=== PATIENT | male | born 1950 | race Caucasian/White ===

== ENCOUNTER 2022-12-24 11:39 | Emergency (ER) | payer MEDICARE, OTHER ==
[2022-12-24 12:40] VITALS: RESP 20
[2022-12-24] MEDS ORDERED: FLUCONAZOLE 100 MG TAB PO ONE (13:27)
--- NOTE | 2022-12-24 13:32 | ED ---
General Adult HPI - General Chief complaint: Recheck/Abnormal Lab/Rx Stated complaint: vomiting,sob Time Seen by Provider: 12/24/22 12:55 Source: patient, RN notes reviewed, old records reviewed Mode of arrival: ambulatory Limitations: no limitations - History of Present Illness Initial comments: 72-year-old male presenting for evaluation of painful and difficulty swallowing. This been ongoing for many months. He states he was diagnosed with oral thrush and was prescribed nystatin swish and swallow. He states this did not significantly improve his symptoms. He states that he has lost weight secondary to painful swallowing. He is able to drink liquids but is having a hard time drinking any solids due to pain. He has not had endoscopy - Related Data Previous Rx's Medication Instructions Recorded Fluconazole [Diflucan] 200 mg PO DAILY 14 Days #14 tablet 12/24/22 Omeprazole 20 mg PO DAILY 30 Days #30 tab 12/24/22 Allergies Allergy/AdvReac Type Severity Reaction Status Date / Time No Known Allergies Allergy Verified 12/24/22 12:39 Review of Systems ROS Statement: Those systems with pertinent positive or pertinent negative responses have been documented in the HPI. ROS Other: All systems not noted in ROS Statement are negative. 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 Absent: tenderness, meningismus, lymphadenopathy, thyromegaly Respiratory exam: Present: normal lung sounds bilaterally. Absent: respiratory distress, wheezes Cardiovascular Exam: Present: regular rate, normal rhythm GI/Abdominal exam: Present: soft. Absent: distended, tenderness Extremities exam: Present: normal inspection, normal capillary refill Neurological exam: Present: alert, oriented X3, CN II-XII intact. Absent: motor sensory deficit Psychiatric exam: Present: normal affect, normal mood Skin exam: Present: warm, dry, intact. Absent: cyanosis, diaphoretic Course Vital Signs 12/24/22 12/24/22 12:34 13:39 Temperature 98.6 F 98.8 F Pulse Rate 74 100 Respiratory 20 20 Rate Blood Pressure 114/78 124/86 O2 Sat by Pulse 98 96 Oximetry Medical Decision Making - Medical Decision Making Was pt. sent in by a medical professional or institution ([facility], [facility], urgent care, hospital, or residential...) When possible be specific @ -No Did you speak to anyone other than the patient for history (EMS, parent, family, police, friend...)? What history was obtained from this source @ -No Did you review nursing and triage notes (agree or disagree)? Why? @ -I reviewed and agree with nursing and triage notes Were old charts reviewed (outside hosp., previous admission, EMS record, old EKG, old radiological studies, urgent care reports/EKG's, residential records)? Report findings @ -No old charts were reviewed Differential Diagnosis (chest pain, altered mental status, abdominal pain women, abdominal pain men, vaginal bleeding, weakness, fever, dyspnea, syncope, headache, dizziness, GI bleed, back pain, seizure, CVA, palpatations, mental health, musculoskeletal)? @ -[Esophageal mass, esophageal candidiasis, esophageal stricture EKG interpreted by me (3pts min.). @ -As above X-rays interpreted by me (1pt min.). @ -None done CT interpreted by me (1pt min.). @ -None done U/S interpreted by me (1pt. min.). @ -None done What testing was considered but not performed or refused? (CT, X-rays, U/S, labs)? Why? @ -None What meds were considered but not given or refused? Why? @ -None Did you discuss the management of the patient with other professionals (professionals i.e. [facility], [facility], lab, RT, psych nurse, social organization professor, telegraph plant maintainer, teacher, president and chief operating officer, major case detective)? Give summary @ -No Was smoking cessation discussed for >3mins.? @ -No Was critical care preformed (if so, how long)? @ -No Were there social determinants of health that impacted care today? How? (Homelessness, low income, unemployed, alcoholism, drug addiction, transportation, low edu. Level, literacy, decrease access to med. care, snf, rehab)? @ -No Was there de-escalation of care discussed even if they declined (Discuss DNR or withdrawal of care, Hospice)? DNR status @ -No What co-morbidities impacted this encounter? (DM, HTN, Smoking, COPD, CAD, Ca ncer, CVA, ARF, Chemo, Hep., AIDS, mental health diagnosis, sleep apnea, morbid obesity)? @ -[COPD Was patient admitted / discharged? Hospital course, mention meds given and route, prescriptions, significant lab abnormalities, going to OR and other pertinent info. @ -72-year-old male with at least 6 months of difficulty swallowing. I do feel patient will benefit from endoscopy. He appears well-hydrated with stable vitals. Given the chronic nature of this symptom and previous history of oral candidiasis I will treat esophageal candidiasis with fluconazole. He is given strict return parameters and will follow closely with gastroenterology Undiagnosed new problem with uncertain prognosis? @ -No Drug Therapy requiring intensive monitoring for toxicity (Heparin, Nitro, Insulin, Cardizem)? @ -No Were any procedures done? @ -No Diagnosis/symptom? @ -[Odontophagia dysphagia Acute, or Chronic, or Acute on Chronic? @ Chronic Uncomplicated (without systemic symptoms) or Complicated (systemic symptoms)? @ -default Side effects of treatment? @ -No Exacerbation, Progression, or Severe Exacerbation? @ -No Poses a threat to life or bodily function? How? (Chest pain, [place], [place], pneumonia, PE, COPD, DKA, ARF, appy, cholecystitis, CVA, Diverticulitis, Homicidal, Suicidal, threat to staff... and all critical care pts) @ -[Low risk at this time Disposition Clinical Impression: Difficulty swallowing Disposition: HOME SELF-CARE Condition: Good Instructions (If sedation given, give patient instructions): Esophagitis (ED) Prescriptions: Fluconazole [Diflucan] 200 mg PO DAILY 14 Days #14 tablet Omeprazole 20 mg PO DAILY 30 Days #30 tab Is patient prescribed a controlled substance at d/c from ED?: No Referrals: None,Stated [Primary Care Provider] - 1-2 days Karen Hyde MD [STAFF PHYSICIAN] - 1-2 days Time of Disposition: 13:31
[2022-12-24 13:50] VITALS: BP 124/86; PULSE 100; TEMP 98.8
== END 2022-12-24 14:08 | disposition home or self-care (01) ==
LOC: EC 11:39
DX: R13.10 Dysphagia, unspecified (principal); F17.200 Nicotine dependence, unspecified, uncomplicated
CPT/HCPCS: 99284

== ENCOUNTER 2023-01-03 12:03 | Inpatient (IN) | payer MEDICARE, OTHER ==
[2023-01-03 13:29] LABS: Anisocytosis Slight; Basophils % (A) 0 %; Eosinophils % (A) 0 %; HCT 40.1 % (39.0-53.0); HGB 13.3 gm/dL (13.0-17.5); Lymphocytes # (A) 0.3 k/uL (1.0-4.8); Lymphocytes % (A) 5 %; MCH 27.6 pg (25.0-35.0); MCHC 33.1 g/dL (31.0-37.0); MCV 83.4 fL (80.0-100.0); Mean Platelet Volume 10.1; Monocytes # (A) 0.2 k/uL (0-1.0); Monocytes % (A) 3 %; Neutrophils # (A) 4.9 k/uL (1.3-7.7); Neutrophils % (A) 90 %; Platelet Count 129 k/uL (150-450); RBC 4.81 m/uL (4.30-5.90); RDW 16.4 % (11.5-15.5); WBC 5.5 k/uL (3.8-10.6)
[2023-01-03 13:41] LABS: ALT 78 U/L (4-49); AST 162 U/L (17-59); African American GFR (CKD) >90 (>60 ml/min/1.73 sqM); Albumin 3.1 g/dL (3.5-5.0); Alkaline Phosphatase 150 U/L (38-126); Anion Gap 4 mmol/L; Blood Urea Nitrogen 27 mg/dL (9-20); Calcium 8.5 mg/dL (8.4-10.2); Carbon Dioxide 31 mmol/L (22-30); Chloride 92 mmol/L (98-107); Glucose 116 mg/dL (74-99); Magnesium 2.4 mg/dL (1.6-2.3); Non-African American GFR(CKD) 85 (>60 ml/min/1.73 sqM); Potassium 4.9 mmol/L (3.5-5.1); Sodium 127 mmol/L (137-145); Total Bilirubin 1.3 mg/dL (0.2-1.3); Total Protein 6.2 g/dL (6.3-8.2)
--- NOTE | 2023-01-03 13:42 | XR ---
EXAMINATION TYPE: XR chest 2V DATE OF EXAM: 01/03/2023 COMPARISON: NONE HISTORY: Shortness of breath TECHNIQUE: Frontal and lateral views of the chest are obtained. FINDINGS: Scattered senescent parenchymal changes noted. Hyperinflation compatible with COPD. Strandy density left lower lobe anteriorly reflect atelectasis or developing infiltrate. Correlate cl inically and progress studies are recommended. Heart size is stable. Mediastinal structures are stable and grossly unremarkable. No evidence for hilar prominence. Degenerative changes dorsal spine. IMPRESSION: 1. Strandy density left lower lobe anteriorly reflect atelectasis or developing infiltrate. Correlate clinically and progress studies are recommended.
[2023-01-03 13:46] LABS: INR 1.1 (<1.2); Partial Thromboplastin Time 29.5 sec (22.0-30.0); Prothrombin Time 11.4 sec (9.0-12.0)
[2023-01-03 13:50] LABS: Lactic Acid, Venous 2.2 mmol/L (0.7-2.0)
--- NOTE | 2023-01-03 14:12 | ED ---
General Adult HPI - General Chief complaint: Weakness Stated complaint: AMS Time Seen by Provider: 01/03/23 12:48 Source: patient, family Mode of arrival: wheelchair Limitations: no limitations - History of Present Illness Initial comments: 72-year-old male with past medical history of right eye cancer who presents to the emergency department reporting weakness, inability to eat and difficulty swallowing. He was seen in the emergency department several days ago for similar complaint. He was diagnosed with thrush. Originally stated that his symptoms started in May after he was started on a Trilogy inhaler for Covid. States that it made his throat raw and difficult to swallow. He went to an urgent care who placed him on nystatin. States he took the course of the medications without any improvement in his symptoms. He was then seen in the emergency department for similar complaint and prescribed Diflucan. Took the medications as directed and continues to have symptoms. It has gotten to the point where the patient has not ate or drank anything in the past week. Brother is at bedside state that the patient is extremely weak and sleeps all day. Patient denies any other complaints. No chest pain or shortness of breath. No cough. No fevers. He is a former smoker. He denies any swelling. No rashes. No other alleviating, agency operator modifying factors - Related Data Home Medications Medication Instructions Recorded Confirmed No Known Home Medications 01/03/23 01/03/23 Allergies Allergy/AdvReac Type Severity Reaction Status Date / Time No Known Allergies Allergy Verified 01/03/23 14:57 Review of Systems ROS Statement: Those systems with pertinent positive or pertinent negative responses have been documented in the HPI. ROS Other: All systems not noted in ROS Statement are negative. 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 Absent: scleral icterus, conjunctival injection, periorbital swelling ENT exam: Present: other (Tongue, soft palate and posterior pharynx are covered in white plaques consistent with possible thrush) Neck exam: Present: normal inspection. Absent: tenderness, meningismus, lymphadenopathy Respiratory exam: Present: normal lung sounds bilaterally. Absent: respiratory distress, wheezes, rales, rhonchi, stridor Cardiovascular Exam: Present: regular rate, normal rhythm, normal heart sounds. Absent: systolic murmur, diastolic murmur, rubs, gallop, clicks GI/Abdominal exam: Present: soft, normal bowel sounds. Absent: distended, te nderness, guarding, rebound, rigid Extremities exam: Present: normal inspection, full ROM, normal capillary refill. Absent: tenderness, pedal edema, joint swelling, calf tenderness Back exam: Present: normal inspection Neurological exam: Present: alert, oriented X3, CN II-XII intact Psychiatric exam: Present: normal affect, normal mood Skin exam: Present: warm, dry, intact, normal color. Absent: rash Course Vital Signs 01/03/23 12:10 Temperature 98.3 F Pulse Rate 85 Respiratory 22 Rate Blood Pressure 104/71 O2 Sat by Pulse 94 L Oximetry Medical Decision Making - Medical Decision Making Was pt. sent in by a medical professional or institution (, PA, CLINICAL ABSTRACTOR, urgent care, hospital, or [facility]...) When possible be specific @ -No Did you speak to anyone other than the patient for history (EMS, parent, family, police, friend...)? What history was obtained from this source @ -I spoke with the patient's brothers in regards to his symptoms Did you review nursing and triage notes (agree or disagree)? Why? @ -I reviewed and agree with nursing and triage notes Were old charts reviewed (outside hosp., previous admission, EMS record, old EKG, old radiological studies, urgent care reports/EKG's, [facility] records)? Report findings @ -I reviewed the patient's encounter in the emergency department from December 24 where he was prescribed Diflucan Differential Diagnosis (chest pain, altered mental status, abdominal pain women, abdominal pain men, vaginal bleeding, weakness, fever, dyspnea, syncope, headache, dizziness, GI bleed, back pain, seizure, CVA, palpatations, mental health, musculoskeletal)? @ -Differential Weakness: Hypoglycemia, shock, sepsis, hyponatremia, anemia, infection, [place], ETOH, adverse medicine reaction, overdose, stroke, this is not meant to be an all-inclusive list. EKG interpreted by me (3pts min.). @ -yes and demonstrates sinus tach with a rate of 104. AL interval 157. QRS 99. QTC of 370. No acute ST segment elevations. ST depression V3 X-rays interpreted by me (1pt min.). @ -Yes and demonstrates possible pneumonia. CT interpreted by me (1pt min.). @ -None done U/S interpreted by me (1pt. min.). @ -None done What testing was considered but not performed or refused? (CT, X-rays, U/S, labs)? Why? @ -None What meds were considered but not given or refused? Why? @ -None Did you discuss the management of the patient with other professionals (professionals i.e. , PA, CLINICAL ABSTRACTOR, lab, RT, psych nurse, social science manager, shipyard laborer, teacher, retirement officer, comp field case manager)? Give summary @ -Spoke with Dr. Diaz who agreed to admit the patient Was smoking cessation discussed for >3mins.? @ -No Was critical care preformed (if so, how long)? @ -No Were there social determinants of health that impacted care today? How? (Homelessness, low income, unemployed, alcoholism, drug addiction, transportation, low edu. Level, literacy, decrease access to med. care, penitentiary, rehab)? @ -No Was there de-escalation of care discussed even if they declined (Discuss DNR or withdrawal of care, Hospice)? DNR status @ -No What co-morbidities impacted this encounter? (DM, HTN, Smoking, COPD, CAD, Can cer, CVA, ARF, Chemo, Hep., AIDS, mental health diagnosis, sleep apnea, morbid obesity)? @ -None Was patient admitted / discharged? Hospital course, mention meds given and route, prescriptions, significant lab abnormalities, going to OR and other pertinent info. @ -Upon arrival patient was placed in room 6. A thorough history and physical exam was performed. IV is established and laboratory studies are conducted. He was given 1 L of normal saline followed by 130 mL/h. Laboratory studies are reviewed. Chest x-ray is performed. Chest x-ray does demonstrate possible pneumonia however patient has no clinical symptoms. He was given a dose of Diflucan for his thrush. Due to his failed outpatient treatment did recommend admission for ENT consultation. Patient was agreeable to this. He is currently waiting about on the floor in stable condition Undiagnosed new problem with uncertain prognosis? @ -Yes Drug Therapy requiring intensive monitoring for toxicity (Heparin, Nitro, Insulin, Cardizem)? @ -No Were any procedures done? @ -No Diagnosis/symptom? @ -Acute odynophagia, acute thrush, failed outpatient treatment, acute hyponatremia, sinus tachycardia, lactic acidosis, failure to thrive Acute, or Chronic, or Acute on Chronic? @ -Acute Uncomplicated (without systemic symptoms) or Complicated (systemic symptoms)? @ -Complicated Side effects of treatment? @ -No Exacerbation, Progression, or Severe Exacerbation? @ -No Poses a threat to life or bodily function? How? (Chest pain, [place], [place], pneumonia, PE, COPD, DKA, ARF, appy, cholecystitis, CVA, Diverticulitis, Homicidal, Suicidal, threat to staff... and all critical care pts) @ -No - Lab Data Result diagrams: 01/03/23 13:11 01/03/23 13:11 Lab Results 01/03/23 01/03/23 01/03/23 Range/Units 13:11 13:11 13:11 WBC 5.5 (3.8-10.6) k/uL RBC 4.81 (4.30-5.90) m/uL Hgb 13.3 (13.0-17.5) gm/dL Hct 40.1 (39.0-53.0) % MCV 83.4 (80.0-100.0) fL MCH 27.6 (25.0-35.0) pg MCHC 33.1 (31.0-37.0) g/dL RDW 16.4 H (11.5-15.5) % Plt Count 129 L (150-450) k/uL MPV 10.1 Neutrophils % 90 % Lymphocytes % 5 % Monocytes % 3 % Eosinophils % 0 % Basophils % 0 % Neutrophils # 4.9 (1.3-7.7) k/uL Lymphocytes # 0.3 L (1.0-4.8) k/uL Monocytes # 0.2 (0-1.0) k/uL Eosinophils # 0.0 (0-0.7) k/uL Basophils # 0.0 (0-0.2) k/uL Anisocytosis Slight PT 11.4 (9.0-12.0) sec INR 1.1 (<1.2) APTT 29.5 (22.0-30.0) sec Sodium 127 L (137-145) mmol/L Potassium 4.9 (3.5-5.1) mmol/L Chloride 92 L (98-107) mmol/L Carbon Dioxide 31 H (22-30) mmol/L Anion Gap 4 mmol/L BUN 27 H (9-20) mg/dL Creatinine 0.91 (0.66-1.25) mg/dL Est GFR (CKD-EPI)AfAm >90 (>60 ml/min/1.73 sqM) Est GFR (CKD-EPI)NonAf 85 (>60 ml/min/1.73 sqM) Glucose 116 H (74-99) mg/dL Plasma Lactic Acid Phong (0.7-2.0) mmol/L Calcium 8.5 (8.4-10.2) mg/dL Magnesium 2.4 H (1.6-2.3) mg/dL Total Bilirubin 1.3 (0.2-1.3) mg/dL AST 162 H (17-59) U/L ALT 78 H (4-49) U/L Alkaline Phosphatase 150 H (38-126) U/L Ammonia (<30) umol/L Troponin I (0.000-0.034) ng/mL Total Protein 6.2 L (6.3-8.2) g/dL Albumin 3.1 L (3.5-5.0) g/dL 01/03/23 01/03/23 Range/Units 13:11 13:11 WBC (3.8-10.6) k/uL RBC (4.30-5.90) m/uL Hgb (13.0-17.5) gm/dL Hct (39.0-53.0) % MCV (80.0-100.0) fL MCH (25.0-35.0) pg MCHC (31.0-37.0) g/dL RDW (11.5-15.5) % Plt Count (150-450) k/uL MPV Neutrophils % % Lymphocytes % % Monocytes % % Eosinophils % % Basophils % % Neutrophils # (1.3-7.7) k/uL Lymphocytes # (1.0-4.8) k/uL Monocytes # (0-1.0) k/uL Eosinophils # (0-0.7) k/uL Basophils # (0-0.2) k/uL Anisocytosis PT (9.0-12.0) sec INR (<1.2) APTT (22.0-30.0) sec Sodium (137-145) mmol/L Potassium (3.5-5.1) mmol/L Chloride (98-107) mmol/L Carbon Dioxide (22-30) mmol/L Anion Gap mmol/L BUN (9-20) mg/dL Creatinine (0.66-1.25) mg/dL Est GFR (CKD-EPI)AfAm (>60 ml/min/1.73 sqM) Est GFR (CKD-EPI)NonAf (>60 ml/min/1.73 sqM) Glucose (74-99) mg/dL Plasma Lactic Acid Phong 2.2 H* (0.7-2.0) mmol/L Calcium (8.4-10.2) mg/dL Magnesium (1.6-2.3) mg/dL Total Bilirubin (0.2-1.3) mg/dL AST (17-59) U/L ALT (4-49) U/L Alkaline Phosphatase (38-126) U/L Ammonia <9 (<30) umol/L Troponin I <0.012 (0.000-0.034) ng/mL Total Protein (6.3-8.2) g/dL Albumin (3.5-5.0) g/dL Disposition Clinical Impression: Thrush of mouth and esophagus, Hyponatremia, Difficulty swallowing, Lactic acidosis Disposition: ADMITTED IP TO THIS [facility] Condition: Stable Is patient prescribed a controlled substance at d/c from ED?: No Time of Disposition: 15:12 Decision to Admit Reason: Admit from EC Decision Date: 01/03/23 Decision Time: 15:12
[2023-01-03] MEDS ORDERED: FLUCONAZOLE 100 MG TAB PO ONE (15:07)
[2023-01-03] MEDS ORDERED: NALOXONE 0.4 MG/ML 1 ML VIAL IV PRN (15:12)
[2023-01-03] MEDS ORDERED: MORPHINE SULFATE 4 MG/ML SYRINGE IV PRN (15:12)
[2023-01-03] MEDS ORDERED: IBUPROFEN 400 MG TAB PO PRN (15:12)
[2023-01-03] MEDS ORDERED: SODIUM CHLORIDE 0.9% 1,000 ML IV SCH (15:15)
[2023-01-03] MEDS ORDERED: SODIUM CHLORIDE 0.9% 1,000 ML IV ONE (15:15)
[2023-01-03 21:06] LABS: Glucose,Whole Blood 99 mg/dL (70-110)
[2023-01-03] MEDS: DEXTROSE 5%-0.45% NACL 1,000 ML IV SCH (21:06)
[2023-01-04] MEDS ORDERED: ACETAMINOPHEN SUPPOSITORY 650 MG SUPP RECTAL PRN (03:09)
[2023-01-04] MEDS: DEXTROSE 5%-0.45% NACL 1,000 ML IV SCH ×2 (04:49→14:02)
[2023-01-04] MEDS ORDERED: PIPERACILLIN-TAZOBACTAM 3.375 GM in SODIUM CHLORIDE 0.9% 100 ML IVPB SCH ×2 (06:00→08:00)
[2023-01-04 06:49] LABS: ALT 67 U/L (4-49); AST 139 U/L (17-59); African American GFR (CKD) >90 (>60 ml/min/1.73 sqM); Albumin 2.3 g/dL (3.5-5.0); Albumin/Globulin Ratio 0.9; Alkaline Phosphatase 124 U/L (38-126); Anion Gap 2 mmol/L; Blood Urea Nitrogen 18 mg/dL (9-20); Calcium 7.7 mg/dL (8.4-10.2); Carbon Dioxide 26 mmol/L (22-30); Chloride 98 mmol/L (98-107); Globulin 2.7 g/dL; Glucose 131 mg/dL (74-99); Non-African American GFR(CKD) >90 (>60 ml/min/1.73 sqM); Potassium 3.8 mmol/L (3.5-5.1); Sodium 126 mmol/L (137-145); Total Bilirubin 0.9 mg/dL (0.2-1.3)
--- NOTE | 2023-01-04 06:55 | XR ---
EXAMINATION TYPE: XR chest 2V DATE OF EXAM: 01/04/2023 HISTORY: Shortness of breath. COMPARISON: 01/03/2023 TECHNIQUE: Single view of the chest is submitted. FINDINGS: Demonstrated are scattered senescent parenchymal change. Left basilar pleural-parenchymal opacity is again noted. Small effusion with subpulmonic component. The heart is stable. Hilar and mediastinal structures are within normal limits. Degenerative changes are seen of the dorsal spine. IMPRESSION: 1. Left basilar pleural-parenchymal opacity is again noted. Small effusion with subpulmonic componen t.
[2023-01-04] MEDS: PIPERACILLIN-TAZOBACTAM 3.375 GM in SODIUM CHLORIDE 0.9% 100 ML IVPB SCH ×3 (09:54→22:00)
[2023-01-04 10:16] LABS: Basophils # (A) 0.01 X 10*3/uL (0.00-0.10); Basophils % (A) 0.3 %; Eosinophils # (A) 0 X 10*3/uL (0.04-0.35); Eosinophils % (A) 0 %; HCT 34.9 % (39.6-50.0); HGB 11.1 d/dL (13.0-17.0); Lymphocytes # (A) 0.22 X 10*3/uL (0.90-5.00); Lymphocytes % (A) 5.5 %; MCH 26.8 pg (27.0-32.0); MCHC 31.8 d/dL (32.0-37.0); MCV 84.3 FL (80.0-97.0); Mean Platelet Volume 12.8 FL (9.5-12.2); Monocytes # (A) 0.23 X 10*3/uL (0.20-1.00); Monocytes % (A) 5.8 %; NRBC Per 100 WBC 0 X 10*3/uL (0.00-0.01); Neutrophils # (A) 3.49 X 10*3/uL (1.80-7.70); Neutrophils % (A) 87.1 %; Platelet Count 160 X 10*3/uL (140-440); RBC 4.14 X 10*6/uL (4.40-5.60); RDW 17.1 % (11.5-14.5)
[2023-01-04] MEDS: FLUCONAZOLE 100 MG TAB PO SCH (11:09)
[2023-01-04 13:01] VITALS: BMI 22.2
[2023-01-04 13:42] LABS: Appearance,Urine Clear (Clear); Bilirubin,Urine Negative (Negative); Blood,Urine Negative (Negative); Color,Urine Dark Brown; Glucose,Urine (UA) Negative (Negative); Ketones,Urine Negative (Negative); Leukocyte Esterase,Urine Negative (Negative); Nitrite,Urine Negative (Negative); PH, Urine 5.5 (5.0-8.0); Protein,Urine Trace (Negative); Specific Gravity,Urine 1.024 (1.001-1.035)
[2023-01-04] MEDS: ACETAMINOPHEN TAB 325 MG TAB PO PRN (15:00)
--- NOTE | 2023-01-04 16:14 | P.HPIM ---
History of Present Illness H&P Date: 01/04/23 Chief Complaint: Difficulty swallowing This is a pleasant 72-year-old patient who follows with Dr. Chad Abad. Patient now presents that since May of this series of decreased appetite. Became much worse in November of this year. Denies any pain. Has a cough. Finding it difficult to swallow. 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 And losing some weight. Tired. Spiked a fever to 102.6. Able to get around the house. Patient stopped smoking about 8 months ago. Patient was drinking about 12 pack alcohol per week. Patient was being treated for thrush outpatient. Review of systems: GEN.: Decreased appetite with loss EYES: None HEENT: None NECK: None RESPIRATORY: None CARDIOVASCULAR: None GASTROINTESTINAL: As above GENITOURINARY: None MUSCULOSKELETAL: None LYMPHATICS: None HEMATOLOGICAL: None PSYCHIATRY: None NEUROLOGICAL: Blind in the right eye Past medical history to include: Right eye cancer with blindness. COVID. Social history: Smoked a pack a day for 45 years stopped about 8 months ago. 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 Drinks about 12 pack of alcohol per week. Physical examination: VITAL SIGNS: T-Max 102.6, 56, 14, 92/54, 94% room air GENERAL: BMI 22.2, diet laying in bed. EYES: [Blind in the right eye l. HEENT: External appearance of nose and ears normal, oral cavity grossly normal. NECK: JVD not raised; masses not palpable. HEART: First and second heart sounds are normal; no edema. LUNGS: Respiratory rate normal; decreased breath sound. ABDOMEN: Soft, nontender, liver spleen not palpable, no masses palpable. PSYCH: Alert and oriented x3; mood and affect normal. MUSCULOSKELETAL:No Clubbing/cyanosis;muscles-grossly intact. Loss of subcutaneous fat. NEUROLOGICAL: Cranial nerves grossly intact; no facial asymmetry, power and sensation grossly intact. LYMPHATICS: No lymph nodes palpable in the axilla and neck INVESTIGATIONS, reviewed in the clinical context: 01/04/2023: White count 4 hemoglobin 11.1 platelets 160 sodium 126 potassium 3.8 creatinine 0.64 AST 139 ALT 67 procalcitonin 0.19 January 03: A 5.5 hemoglobin 13.3 platelets 129 sodium 127 potassium 4.9 BUN 27 creatinine 0.91 AST 162 ALT 78 albumin 3.1 EKG tracing personally reviewed by me-normal sinus rhythm. Some ST segment changes. Chest x-ray film personally reviewed by me-hyperinflation. Possible atelectasis. Assessment and plan: -Possible early pneumonia. Patient spiked a fever 102.6. IV Zosyn. We've followed by ID. -Trouble swallowing. ENT consulted. For a laryngoscopy. Modified barium swallow -Outpatient patient was being treated for thrush. Currently no obvious findings of the pharynx. Follow with ID. -COPD in a previous smoker DuoNeb 3 times a day -GERD PPI -GI services currently not available in the hospital over the weekend. Will need EGD at some point. Care was discussed the patient. Past Medical History Past Medical History: Cancer Additional Past Medical History / Comment(s): COVID 22, rt eye cancer History of Any Multi-Drug Resistant Organisms: None Reported Past Surgical History: Tonsillectomy Past Psychological History: No Psychological Hx Reported Smoking Status: Former smoker Past Alcohol Use History: Occasional Past Drug Use History: None Reported Medications and Allergies Home Medications Medication Instructions Recorded Confirmed Type No Known Home Medications 01/03/23 01/03/23 History Allergies Allergy/AdvReac Type Severity Reaction Status Date / Time No Known Allergies Allergy Verified 01/03/23 14:57 Physical Exam Vitals: Vital Signs Temp Pulse Pulse Resp BP BP Pulse Ox 01/04/23 07:13 97.5 F L 54 L 15 92/54 94 L 01/04/23 06:31 97.3 F L 01/04/23 02:18 102.6 F H 56 L 14 96/58 92 L 01/03/23 20:39 105/67 01/03/23 20:00 55 L 01/03/23 19:19 98.3 F 55 L 16 99/57 93 L 01/03/23 17:14 110 H 16 96/63 93 L 01/03/23 17:09 98.0 F 69 14 87/51 14 L 01/03/23 17:00 106 H 16 107/70 95 01/03/23 16:00 95 16 96/71 94 L 01/03/23 15:00 103 H 16 100/73 95 01/03/23 14:00 112 H 16 100/78 94 L 01/03/23 12:10 98.3 F 85 22 104/71 94 L Intake and Output 01/03/23 01/04/23 01/04/23 22:59 06:59 14:59 Other: Voiding Method Toilet Urinal Weight 64.41 kg Results CBC & Chem 7: 01/04/23 05:45 01/04/23 05:45 Labs: Abnormal Lab Results - Last 24 Hours (Table) 01/03/23 01/03/23 01/03/23 Range/Units 13:11 13:11 13:11 WBC (4.50-10.00) X 10*3/uL RBC (4.40-5.60) X 10*6/uL Hgb (13.0-17.0) d/dL Hct (39.6-50.0) % MCH (27.0-32.0) pg MCHC (32.0-37.0) d/dL RDW 16.4 H (11.5-15.5) % Plt Count 129 L (150-450) k/uL MPV (9.5-12.2) FL Lymphocytes # 0.3 L (1.0-4.8) k/uL Eosinophils # (0.04-0.35) X 10*3/uL Sodium 127 L (137-145) mmol/L Chloride 92 L (98-107) mmol/L Carbon Dioxide 31 H (22-30) mmol/L BUN 27 H (9-20) mg/dL Creatinine (0.66-1.25) mg/dL Glucose 116 H (74-99) mg/dL Plasma Lactic Acid Phong 2.2 H* (0.7-2.0) mmol/L Calcium (8.4-10.2) mg/dL Magnesium 2.4 H (1.6-2.3) mg/dL AST 162 H (17-59) U/L ALT 78 H (4-49) U/L Alkaline Phosphatase 150 H (38-126) U/L C-Reactive Protein (<1.0) mg/dL Total Protein 6.2 L (6.3-8.2) g/dL Albumin 3.1 L (3.5-5.0) g/dL 01/04/23 01/04/23 Range/Units 05:45 05:45 WBC 4.00 L (4.50-10.00) X 10*3/uL RBC 4.14 L (4.40-5.60) X 10*6/uL Hgb 11.1 L (13.0-17.0) d/dL Hct 34.9 L (39.6-50.0) % MCH 26.8 L (27.0-32.0) pg MCHC 31.8 L (32.0-37.0) d/dL RDW 17.1 H (11.5-15.5) % Plt Count (150-450) k/uL MPV 12.8 H (9.5-12.2) FL Lymphocytes # 0.22 L (1.0-4.8) k/uL Eosinophils # 0 L (0.04-0.35) X 10*3/uL Sodium 126 L (137-145) mmol/L Chloride (98-107) mmol/L Carbon Dioxide (22-30) mmol/L BUN (9-20) mg/dL Creatinine 0.64 L (0.66-1.25) mg/dL Glucose 131 H (74-99) mg/dL Plasma Lactic Acid Phong (0.7-2.0) mmol/L Calcium 7.7 L (8.4-10.2) mg/dL Magnesium (1.6-2.3) mg/dL AST 139 H (17-59) U/L ALT 67 H (4-49) U/L Alkaline Phosphatase (38-126) U/L C-Reactive Protein 6.0 H (<1.0) mg/dL Total Protein 5.0 L (6.3-8.2) g/dL Albumin 2.3 L (3.5-5.0) g/dL Thrombosis Risk Factor Assmnt - Choose All That Apply Any of the Below Risk Factors Present?: No Other Risk Factors: Yes Each Risk Factor Represents 2 Points: Age 61-74 years Other congenital or acquired thrombophilia - If yes, enter type in comment: No Thrombosis Risk Factor Assessment Total Risk Factor Score: 2 Thrombosis Risk Factor Assessment Level: Low Risk
[2023-01-04] MEDS: IPRATROPIUM-ALBUTEROL 3 ML NEB INHALATION SCH ×2 (16:22→19:58)
[2023-01-04] MEDS: PANTOPRAZOLE 40 MG TABLET PO SCH (16:49)
--- NOTE | 2023-01-04 22:06 | P.CONS ---
History of Present Illness - Reason for Consult Consult date: 01/04/23 Thrush, failed outpatient oral antifungals Requesting physician: Valentín Charles - Chief Complaint Soreness in the mouth and difficulty swallowing x days - History of Present Illness Patient is a 72-year-old male with a past medical history significant for right eye cancer did have a history of COVID-19 infection presenting to the hospital yesterday afternoon for evaluation of weakness inability to eat and difficulty swallowing symptom has been going on for a few days patient has previously been evaluated in the ER diagnosed with thrush and has been treated w ith nystatin swish and swallow however did not have any improvement patient did not have any fever on presentation to the hospital however he did spike a fever around 2 AM of 102.6 F for which I was contacted by the patient nurse cultures were ordered patient empirically started on Zosyn pending evaluation this morning, patient currently denies having any headache has been complaining of mostly difficulty swallowing he also have a congested cough and is bringing up some purulent sputum denies any vomiting no abdominal pain no diarrhea no urinary symptoms patient did have a normal white count on presentation to the hospital did have a normal creatinine lactic acid was elevated liver cells mild elevated procalcitonin 0.19 urine has been negative chest x-ray left basilar pleural-parenchymal opacity Review of Systems Positive point and negatives has been mentioned in the HPI, complete review of systems was performed and all other systems are negative Past Medical History Past Medical History: Cancer Additional Past Medical History / Comment(s): COVID 22, rt eye cancer History of Any Multi-Drug Resistant Organisms: None Reported Past Surgical History: Tonsillectomy Past Psychological History: No Psychological Hx Reported Smoking Status: Former smoker Past Alcohol Use History: Occasional Past Drug Use History: None Reported Medications and Allergies Home Medications Medication Instructions Recorded Confirmed Type No Known Home Medications 01/03/23 01/03/23 History Allergies Allergy/AdvReac Type Severity Reaction Status Date / Time No Known Allergies Allergy Verified 01/03/23 14:57 Physical Exam Vitals: Vital Signs Temp Pulse Pulse Resp BP BP Pulse Ox 01/04/23 07:13 97.5 F L 54 L 15 92/54 94 L 01/04/23 06:31 97.3 F L 01/04/23 02:18 102.6 F H 56 L 14 96/58 92 L 01/03/23 20:39 105/67 01/03/23 20:00 55 L 01/03/23 19:19 98.3 F 55 L 16 99/57 93 L 01/03/23 17:14 110 H 16 96/63 93 L 01/03/23 17:09 98.0 F 69 14 87/51 14 L 01/03/23 17:00 106 H 16 107/70 95 01/03/23 16:00 95 16 96/71 94 L 01/03/23 15:00 103 H 16 100/73 95 01/03/23 14:00 112 H 16 100/78 94 L 01/03/23 12:10 98.3 F 85 22 104/71 94 L Intake and Output 01/03/23 01/04/23 01/04/23 22:59 06:59 14:59 Other: Voiding Method Toilet Urinal Weight 64.41 kg GENERAL DESCRIPTION: Elderly male lying in bed, no distress. No tachypnea or accessory muscle of respiration use. HEENT: Shows Pallor , no scleral icterus. Oral mucous membrane with extensive coating white patches NECK: Trachea central, no thyromegaly. LUNGS: Unlabored breathing. Decreased breath sounds in the bases. HEART: S1, S2, regular rate and rhythm. No loud murmur ABDOMEN: Soft, no tenderness , guarding or rigidity, no organomegaly EXTREMITIES: No edema of feet. SKIN: No rash, no masses palpable. NEUROLOGICAL: The patient is awake, alert, oriented x3, mood and affect normal. Results CBC & Chem 7: 01/05/23 12:21 01/05/23 08:54 Labs: Abnormal Lab Results - Last 24 Hours (Table) 01/03/23 01/03/23 01/03/23 Range/Units 13:11 13:11 13:11 WBC (4.50-10.00) X 10*3/uL RBC (4.40-5.60) X 10*6/uL Hgb (13.0-17.0) d/dL Hct (39.6-50.0) % MCH (27.0-32.0) pg MCHC (32.0-37.0) d/dL RDW 16.4 H (11.5-15.5) % Plt Count 129 L (150-450) k/uL MPV (9.5-12.2) FL Lymphocytes # 0.3 L (1.0-4.8) k/uL Eosinophils # (0.04-0.35) X 10*3/uL Sodium 127 L (137-145) mmol/L Chloride 92 L (98-107) mmol/L Carbon Dioxide 31 H (22-30) mmol/L BUN 27 H (9-20) mg/dL Creatinine (0.66-1.25) mg/dL Glucose 116 H (74-99) mg/dL Plasma Lactic Acid Phong 2.2 H* (0.7-2.0) mmol/L Calcium (8.4-10.2) mg/dL Magnesium 2.4 H (1.6-2.3) mg/dL AST 162 H (17-59) U/L ALT 78 H (4-49) U/L Alkaline Phosphatase 150 H (38-126) U/L C-Reactive Protein (<1.0) mg/dL Total Protein 6.2 L (6.3-8.2) g/dL Albumin 3.1 L (3.5-5.0) g/dL 01/04/23 01/04/23 Range/Units 05:45 05:45 WBC 4.00 L (4.50-10.00) X 10*3/uL RBC 4.14 L (4.40-5.60) X 10*6/uL Hgb 11.1 L (13.0-17.0) d/dL Hct 34.9 L (39.6-50.0) % MCH 26.8 L (27.0-32.0) pg MCHC 31.8 L (32.0-37.0) d/dL RDW 17.1 H (11.5-15.5) % Plt Count (150-450) k/uL MPV 12.8 H (9.5-12.2) FL Lymphocytes # 0.22 L (1.0-4.8) k/uL Eosinophils # 0 L (0.04-0.35) X 10*3/uL Sodium 126 L (137-145) mmol/L Chloride (98-107) mmol/L Carbon Dioxide (22-30) mmol/L BUN (9-20) mg/dL Creatinine 0.64 L (0.66-1.25) mg/dL Glucose 131 H (74-99) mg/dL Plasma Lactic Acid Phong (0.7-2.0) mmol/L Calcium 7.7 L (8.4-10.2) mg/dL Magnesium (1.6-2.3) mg/dL AST 139 H (17-59) U/L ALT 67 H (4-49) U/L Alkaline Phosphatase (38-126) U/L C-Reactive Protein 6.0 H (<1.0) mg/dL Total Protein 5.0 L (6.3-8.2) g/dL Albumin 2.3 L (3.5-5.0) g/dL Assessment and Plan (1) Aspiration pneumonia Status: Acute Code(s): J69.0 - PNEUMONITIS DUE TO INHALATION OF FOOD AND VOMIT SNOMED Code(s): 377197308 (2) Thrush of mouth and esophagus Status: Acute Code(s): B37.81 - CANDIDAL ESOPHAGITIS; B37.0 - CANDIDAL STOMATITIS SNOMED Code(s): 511086255 Plan: 1patient with a fever and this patient was in the hospital with difficulty swallowing and has been diagnosed with thrush in the outpatient setting feeling nystatin swish and swallow now with cough and some purulent sputum did have a left basilar opacity elevated procalcitonin possible pneumonia questionable aspiration etiology 2-obtain sputum for Gram stain culture 3-we will continue patient on Zosyn 3.375 g every 8 hours along with oral Diflucan for the thrush and see clinical response We will follow on clinical condition and cultures to further adjust medication if needed Thank you for this consultation we will follow the patient along with you Dictation was produced using [employer] dictation software. please excuse any grammatical, word or spelling errors. Time with Patient: Greater than 30
[2023-01-05] MEDS: DEXTROSE 5%-0.45% NACL 1,000 ML IV SCH ×2 (00:26→11:26)
[2023-01-05] MEDS: ACETAMINOPHEN TAB 325 MG TAB PO PRN (00:39)
[2023-01-05] MEDS: PIPERACILLIN-TAZOBACTAM 3.375 GM in SODIUM CHLORIDE 0.9% 100 ML IVPB SCH ×3 (03:47→16:42)
[2023-01-05 05:37] LABS: Anisocytosis Slight; Basophils % (A) 0 %; Eosinophils % (A) 0 %; HCT 35.3 % (39.0-53.0); HGB 11.8 gm/dL (13.0-17.5); Lymphocytes # (A) 0.4 k/uL (1.0-4.8); Lymphocytes % (A) 7 %; MCH 28.5 pg (25.0-35.0); MCHC 33.5 g/dL (31.0-37.0); MCV 85.1 fL (80.0-100.0); Monocytes # (A) 0.2 k/uL (0-1.0); Monocytes % (A) 3 %; Neutrophils # (A) 4.7 k/uL (1.3-7.7); Neutrophils % (A) 89 %; Platelet Count 123 k/uL (150-450); RBC 4.15 m/uL (4.30-5.90); RDW 16.6 % (11.5-15.5); WBC 5.2 k/uL (3.8-10.6)
[2023-01-05 07:19] LABS: Glucose,Whole Blood 111 mg/dL (70-110)
[2023-01-05] MEDS ORDERED: TRANEXAMIC 1,000 MG/100ML-NACL 1,000 MG in SALINE 1 100ML.BAG IV STA ×2 (08:04→10:24)
[2023-01-05] MEDS: IPRATROPIUM-ALBUTEROL 3 ML NEB INHALATION SCH ×2 (08:08→12:29)
[2023-01-05] MEDS ORDERED: propofoL 100 ML IV ONE (08:15)
[2023-01-05] MEDS ORDERED: SUCCINYLCHOLINE CHLORIDE 200 MG/10 ML VIAL IV ONE (08:18)
[2023-01-05] MEDS ORDERED: CISATRACURIUM 2 MG/ML 5 ML VIAL IV ONE (08:43)
[2023-01-05] MEDS ORDERED: PANTOPRAZOLE 40 MG/10 ML VIAL IVP STA (08:48)
[2023-01-05] MEDS: PANTOPRAZOLE 40 MG TABLET PO SCH (08:51)
[2023-01-05 09:11] LABS: Anisocytosis Slight; Basophils % (A) 0 %; Eosinophils % (A) 0 %; HCT 31.8 % (39.0-53.0); HGB 10.5 gm/dL (13.0-17.5); Hypochromasia Slight; Lymphocytes # (A) 0.9 k/uL (1.0-4.8); Lymphocytes % (A) 14 %; MCH 28.9 pg (25.0-35.0); MCHC 32.9 g/dL (31.0-37.0); MCV 87.6 fL (80.0-100.0); Mean Platelet Volume 10.5; Monocytes # (A) 0.2 k/uL (0-1.0); Monocytes % (A) 3 %; Neutrophils % (A) 82 %; Platelet Count 111 k/uL (150-450); RBC 3.63 m/uL (4.30-5.90); RDW 16.4 % (11.5-15.5); WBC 6.1 k/uL (3.8-10.6)
[2023-01-05 09:15] LABS: ABG Base Excess -6.6 mmol/L; ABG HCO3 21 mmol/L (21-25); ABG PCO2 46 mmHg (35-45); ABG PH 7.26 (7.35-7.45); ABG PO2 263 mmHg (83-108); ABG TCO2 22 mmol/L (19-24)
[2023-01-05 09:17] LABS: INR 1.3 (<1.2); Prothrombin Time 13.6 sec (9.0-12.0)
--- NOTE | 2023-01-05 09:28 | P.GSCN ---
History of Present Illness Consult date: 01/05/23 Reason for Consult: GI bleed History of present illness: 72-year-old male admitted for diagnosis of thrush. Patient with throat pain and difficulty swallowing. This morning patient was found to be hypotensive and had episodes of hematemesis and possible hemoptysis. He was transferred to the ICU. He underwent line placement and bronchoscopy by ICU team. No evidence of pulmonary source of bleeding. Gastric tube was placed to suction and patient has had significant volume of bright red blood. Patient does not have a reported history of alcohol use. He is a smoker. No history of bleeding in the past that we are aware of. Review of Systems ROS unobtainable: due to endotracheal tube Past Medical History Past Medical History: Cancer Additional Past Medical History / Comment(s): COVID 22, rt eye cancer History of Any Multi-Drug Resistant Organisms: None Reported Past Surgical History: Tonsillectomy Past Psychological History: No Psychological Hx Reported Smoking Status: Former smoker Past Alcohol Use History: Occasional Past Drug Use History: None Reported Medications and Allergies Home Medications Medication Instructions Recorded Confirmed Type No Known Home Medications 01/03/23 01/03/23 History Allergies Allergy/AdvReac Type Severity Reaction Status Date / Time No Known Allergies Allergy Verified 01/03/23 14:57 Surgical - Exam Vital Signs Temp Pulse Resp BP Pulse Ox 98.3 F 85 22 104/71 94 L 01/03/23 12:10 01/03/23 12:10 01/03/23 12:10 01/03/23 12:10 01/03/23 12:10 Physical exam: General: Well-developed, well-nourished, intubated HEENT: Normocephalic, sclerae nonicteric Abdomen: Nontender, nondistended, liver somewhat firm to palpation Extremities: No edema, mottled lower extremities Neuro: Alert and oriented Results - Labs 01/05/23 08:54 01/04/23 05:45 Abnormal Lab Results - Last 24 Hours (Table) 01/04/23 01/04/23 01/04/23 Range/Units 05:45 05:45 13:30 WBC 4.00 L (4.50-10.00) X 10*3/uL RBC 4.14 L (4.40-5.60) X 10*6/uL Hgb 11.1 L (13.0-17.0) d/dL Hct 34.9 L (39.6-50.0) % MCH 26.8 L (27.0-32.0) pg MCHC 31.8 L (32.0-37.0) d/dL RDW 17.1 H (11.5-14.5) % Plt Count (150-450) k/uL MPV 12.8 H (9.5-12.2) FL Lymphocytes # 0.22 L (0.90-5.00) X 10*3/uL Eosinophils # 0 L (0.04-0.35) X 10*3/uL PT (9.0-12.0) sec INR (<1.2) ABG pH (7.35-7.45) ABG pCO2 (35-45) mmHg ABG pO2 (83-108) mmHg ABG O2 Saturation (94-97) % POC Glucose (mg/dL) (70-110) mg/dL Procalcitonin 0.19 H (0.02-0.09) ng/mL Urine Protein Trace H (Negative) Crossmatch 01/05/23 01/05/23 01/05/23 Range/Units 05:20 07:18 08:04 WBC (4.50-10.00) X 10*3/uL RBC 4.15 L (4.40-5.60) X 10*6/uL Hgb 11.8 L (13.0-17.0) d/dL Hct 35.3 L (39.6-50.0) % MCH (27.0-32.0) pg MCHC (32.0-37.0) d/dL RDW 16.6 H (11.5-14.5) % Plt Count 123 L (150-450) k/uL MPV (9.5-12.2) FL Lymphocytes # 0.4 L (0.90-5.00) X 10*3/uL Eosinophils # (0.04-0.35) X 10*3/uL PT (9.0-12.0) sec INR (<1.2) ABG pH (7.35-7.45) ABG pCO2 (35-45) mmHg ABG pO2 (83-108) mmHg ABG O2 Saturation (94-97) % POC Glucose (mg/dL) 111 H (70-110) mg/dL Procalcitonin (0.02-0.09) ng/mL Urine Protein (Negative) Crossmatch See Detail 01/05/23 01/05/23 01/05/23 Range/Units 08:54 08:54 09:11 WBC (4.50-10.00) X 10*3/uL RBC 3.63 L (4.40-5.60) X 10*6/uL Hgb 10.5 L (13.0-17.0) d/dL Hct 31.8 L (39.6-50.0) % MCH (27.0-32.0) pg MCHC (32.0-37.0) d/dL RDW 16.4 H (11.5-14.5) % Plt Count 111 L (150-450) k/uL MPV (9.5-12.2) FL Lymphocytes # 0.9 L (0.90-5.00) X 10*3/uL Eosinophils # (0.04-0.35) X 10*3/uL PT 13.6 H (9.0-12.0) sec INR 1.3 H (<1.2) ABG pH 7.26 L (7.35-7.45) ABG pCO2 46 H (35-45) mmHg ABG pO2 263 H (83-108) mmHg ABG O2 Saturation 99.0 H (94-97) % POC Glucose (mg/dL) (70-110) mg/dL Procalcitonin (0.02-0.09) ng/mL Urine Protein (Negative) Crossmatch Assessment and Plan (1) GI bleed Narrative/Plan: 72-year-old male with GI bleed. Etiology unclear at this time proceed with u rgent EGD at bedside. Current Visit: Yes Status: Acute Code(s): K92.2 - GASTROINTESTINAL HEMORRHAGE, UNSPECIFIED SNOMED Code(s): 25232040
[2023-01-05] MEDS ORDERED: PROPOFOL 10 MG/ML 20 ML VIAL IV ONE (09:30)
[2023-01-05] MEDS ORDERED: MIDAZOLAM 2 MG/2 ML VIAL ONE (09:30)
[2023-01-05] MEDS ORDERED: ROCURONIUM 10 MG/ML (5 ML VIAL) IV ONE (09:30)
[2023-01-05] MEDS ORDERED: PHENYLEPHRINE-0.9% NACL SYG 1,000 MCG/10 ML SYRINGE ONE (09:30)
[2023-01-05 09:34] LABS: ALT 52 U/L (4-49); AST 110 U/L (17-59); African American GFR (CKD) >90 (>60 ml/min/1.73 sqM); Albumin 1.6 g/dL (3.5-5.0); Alkaline Phosphatase 89 U/L (38-126); Anion Gap 1 mmol/L; Blood Urea Nitrogen 11 mg/dL (9-20); Carbon Dioxide 22 mmol/L (22-30); Chloride 104 mmol/L (98-107); Glucose 136 mg/dL (74-99); Non-African American GFR(CKD) >90 (>60 ml/min/1.73 sqM); Potassium 3.8 mmol/L (3.5-5.1); Sodium 127 mmol/L (137-145); Total Bilirubin 0.6 mg/dL (0.2-1.3); Total Protein 3.6 g/dL (6.3-8.2)
--- NOTE | 2023-01-05 09:50 | XR ---
EXAMINATION TYPE: XR chest 1V portable DATE OF EXAM: 01/05/2023 COMPARISON: 01/04/2023 HISTORY: SOB, Follow Up FINDINGS: Endotracheal tube demonstrates its distal tip 6.8 cm from the corina. The coursing into the stomach. Right IJ central venous line with distal tip at the SVC. Increasing basilar infiltrates and effusions. Stable appearance of the cardio-mediastinal structures at this time. IMPRESSION: 1. Increasing basilar infiltrates and effusions.
[2023-01-05] MEDS ORDERED: IV FLUID CONTINUATION 1,000 ML IV ONE (09:52)
[2023-01-05] MEDS ORDERED: SODIUM CHLORIDE 0.9% 500 ML 500 ML IV ONE (10:08)
[2023-01-05 10:13] LABS: Calcium 5.8 mg/dL (8.4-10.2)
[2023-01-05] MEDS ORDERED: SODIUM CHLORIDE 0.9% 1,000 ML IV SCH (10:45)
[2023-01-05] MEDS: FLUCONAZOLE 100 MG TAB PO SCH (10:50)
[2023-01-05] MEDS ORDERED: FUROSEMIDE 10 MG/ML 2 ML VIAL IV ONE (11:00)
[2023-01-05] MEDS ORDERED: CALCIUM GLUCONATE IN NACL 1 GM in SALINE 1 100ML.BAG IVPB ONE ×2 (11:00→14:27)
[2023-01-05] MEDS ORDERED: TRANEXAMIC ACID 1,000 MG in SODIUM CHLORIDE 0.9% 250 ML IV ONE (11:00)
[2023-01-05] MEDS ORDERED: NOREPINEPHRINE 8 MG in SODIUM CHLORIDE 0.9% 250 ML IV SCH (11:00)
--- NOTE | 2023-01-05 11:10 | P.PCN ---
Date of Procedure: 01/05/23 Procedure(s) Performed: Preoperative Dx: GI bleed Postoperative Dx: No evidence of bleeding within esophagus stomach or duodenum, suspect posterior oropharynx bleeding source Procedure: EGD Anesthesia: Sedation Endoscopist: Dr. Floyd Specimens: None Endoscopic Procedure: The patient was kept on his ICU bed in the supine in the position. The Olympus gastroscope was inserted into the oropharynx and passed under direct visualization to the region of the third portion of the duodenum. From that point the scope was slowly withdrawn inspecting all surfaces carefully. There were no neoplastic inflammatory or polypoid lesions throughout the duodenum. The pylorus was widely patent. There appeared to be some bilious fluid in the third portion of the duodenum. The stomach was carefully inspected. There was a moderate amount of blood within the stomach and some clots. I was able to irrigate and evacuate the majority of the old blood and clots. No visible bleeding was seen. No inflammatory changes or ulcerations were noted. There was no visible hiatal hernia. The esophagus was then inspected. I was most suspicious of a esophageal variceal bleed given the history however the esophagus despite having clots throughout had no evidence of active bleeding or visible varices. I was able to irrigate and suction out the majority of these clots. As we inspected the posterior oropharynx there appeared to be more fresh-appearing blood present. There was some tissue present that at first appeared suspicious for adherent clot but could not be evacuated and I now question whether this is a bleeding oral pharyngeal mass. After the procedure I discussed the findings with pulmonary and also ENT. ENT plans to evaluate at bedside.
--- NOTE | 2023-01-05 11:25 | P.CNPUL ---
History of Present Illness Consult date: 01/05/23 Requesting physician: Isauro Shaw Reason for consult: other (Massive bleeding and sore throat) Chief complaint: Weakness, unable to eat, and difficulty swallowing History of present illness: This is a 72-year-old white male with history of cancer of the right eye, presented to the ER on 01/03/2023, his chief complaint was a complaint of weakness, inability to eat, and difficulty swallowing. Apparently the patient was seen in the ER a few days prior with the same complaint, and he was diag nosed as having thrush. And it was felt most likely this was related to trelegy which was recently prescribed for the patient. Patient was placed on nystatin by urgent care, and there was no improvement in his symptoms. Patient was given later Diflucan and he had no improvement in the symptoms he came to the ER on 01/03, and this time he had multiple constitutional symptoms, admitted, and he was seen by internal medicine and by infectious disease on consultation. For the last 2 days, the patient has been receiving antibiotics in the form of Zosyn for what the left lower lobe pneumonia. Indeed his chest x-ray did show evidence of left basilar opacity and he had a relatively elevated pro calcitonin level. And infectious disease recommended Zosyn also recommended Diflucan. This morning and around 7:30 AM, the a team responded to the patient were in he was having massive amount of blood coming out of his mouth and wasn't certain whether the patient was having hematemesis or hemoptysis. I responded to see the patient up on the fifth floor, and the patient was having massive bleeding and significant amount of blood was noted coming out continuously from his mouth. Patient was transferred immediately to the ICU, ordered at least 3 units of O- blood to be transfused right away, chronic stomach acid was given, and as soon as the patient went to the ICU, I intubated the patient with a size 8.0 endotracheal tube, there was no bleeding noted through the endotracheal tube, nonetheless bronchoscopy was performed and no active bleeding was noted in the airways. A nasogastric tube was placed and there was significant amount of blood fresh blood coming out of the stomach. Then I felt that the patient may have upper GI bleeding hence I consulted Dr. ursula nuñez responded immediately and performed EGD. There was no active bleeding noted in the esophagus or in the stomach or in the duodenum however as he was coming out of the GI tract, he noted blood coming from the pharyngeal area, active bleeding was noted in the area and he went ahead and consulted Dr. Bill. I came back in and used glideoscope try to visualize the area of the oropharynx, and there was obviously evidence of active bleeding noted but could not tell whether there is a mass present or not. I packed the area with gauze, and I recommended immediate evaluation by Dr. Bill. I called him on the phone, and he is coming in to see the patient and will decide whether the patient could be handled here in our institution or would have to be transferred. In the meantime the patient received significant amount of blood at least 3 units so far, he received 2 units of saline/fluid boluses patient received tranexamic acid and he will be on the protocol. ABG post intubation showed a pO2 of 263 pCO2 46 pH of 7.26, hence his vent settings were adjusted. Patient received 1 amp of calcium gluconate for low calcium his hemoglobin on admission was 11.8 hemoglobin after 3 units of packed RBCs given was 10.5. His INR is normal platelets are 111. Review of Systems ROS unobtainable: due to endotracheal tube Past Medical History Past Medical History: Cancer Additional Past Medical History / Comment(s): COVID 22, rt eye cancer History of Any Multi-Drug Resistant Organisms: None Reported Past Surgical History: Tonsillectomy Past Psychological History: No Psychological Hx Reported Smoking Status: Former smoker Past Alcohol Use History: Occasional Past Drug Use History: None Reported Medications and Allergies Home Medications Medication Instructions Recorded Confirmed Type No Known Home Medications 01/03/23 01/03/23 History Allergies Allergy/AdvReac Type Severity Reaction Status Date / Time No Known Allergies Allergy Verified 01/03/23 14:57 Physical Exam Vitals: Vital Signs Temp Pulse Pulse Resp BP BP BP 01/05/23 09:30 97.7 F 116 H 20 120/60 01/05/23 09:20 97.7 F 123 H 20 113/63 01/05/23 09:17 01/05/23 09:16 97.7 F 118 H 20 121/68 01/05/23 09:04 98.2 F 129 H 20 132/72 01/05/23 09:02 01/05/23 08:58 01/05/23 08:49 98.3 F 134 H 22 110/82 01/05/23 08:36 98.5 F 134 H 22 131/90 01/05/23 08:28 99.8 F H 140 H 22 136/95 01/05/23 07:10 98.3 F 57 L 15 72/37 01/05/23 01:22 99.0 F 63 14 96/61 01/04/23 20:11 70 01/04/23 19:58 72 01/04/23 18:55 98.2 F 63 16 90/53 01/04/23 16:31 73 01/04/23 16:23 72 01/04/23 15:02 100.3 F H 01/04/23 11:37 97.6 F 50 L 15 106/65 Pulse Ox FiO2 01/05/23 09:30 100 01/05/23 09:20 100 01/05/23 09:17 45 01/05/23 09:16 100 01/05/23 09:04 100 01/05/23 09:02 100 01/05/23 08:58 100 01/05/23 08:49 100 01/05/23 08:36 100 01/05/23 08:28 01/05/23 07:10 97 01/05/23 01:22 95 01/04/23 20:11 01/04/23 19:58 01/04/23 18:55 98 01/04/23 16:31 01/04/23 16:23 01/04/23 15:02 01/04/23 11:37 99 Intake and Output 01/04/23 01/05/23 01/05/23 22:59 06:59 14:59 Intake Total 1300 Output Total 300 Balance -300 1300 Intake: IV 400 Blood Product 900 Rc As-1 Unit 310 [id number] Rc As-1 Unit 310 [id number] Rc As-1 Unit 0 [id number] Rc Pheresis 2 As3 Unit 280 [id number] Output: Urine 300 Other: Voiding Method Toilet Urinal # Voids 1 # Bowel Movements 1 Physical Exam: Revealed a 72-year-old white male, looks pale, mottled, and having massive amount of bleeding from his mouth Head: Atraumatic, normocephalic. HEENT:[Neck is supple.] [No neck masses.] [No thyromegaly.] [No JVD.] Visualization of the oropharynx with glide scope revealed evidence of active bleeding in the pharyngeal area Chest: [Clear throughout, no crackles, scattered rhonchi noted bilaterally. Cardiac Exam: Tachycardic, [Normal S1 and S2, no S3 gallop, no murmur.] Abdomen: [Soft, nontender, no megaly, no rebound, no guarding, normal bowel sounds.] Extremities: [No clubbing, no edema, no cyanosis.] Patient does look mottled. Neurological Exam: Could not assess, patient was in significant respiratory distress requiring intubation and mechanical ventilation as soon as I evaluated the patient. But he was appropriate following instructions prior to intubation. Psychiatric: Could not assess. Skin: No rashes Results - Laboratory Findings CBC and BMP: 01/05/23 08:54 01/05/23 08:54 ABG ABG pH 7.26 (7.35-7.45) L 01/05/23 09:11 ABG pCO2 46 mmHg (35-45) H 01/05/23 09:11 ABG pO2 263 mmHg (83-108) H 01/05/23 09:11 ABG O2 Saturation 99.0 % (94-97) H 01/05/23 09:11 PT/INR, D-dimer PT 13.6 sec (9.0-12.0) H 01/05/23 08:54 INR 1.3 (<1.2) H 01/05/23 08:54 Abnormal lab findings: Abnormal Labs 01/03/23 01/03/23 01/03/23 13:11 13:11 13:11 WBC RBC Hgb Hct MCH MCHC RDW 16.4 H Plt Count 129 L MPV Lymphocytes # 0.3 L Eosinophils # PT INR ABG pH ABG pCO2 ABG pO2 ABG O2 Saturation ABG Lactic Acid Sodium 127 L Chloride 92 L Carbon Dioxide 31 H BUN 27 H Creatinine Glucose 116 H POC Glucose (mg/dL) Plasma Lactic Acid Hpong 2.2 H* Calcium Magnesium 2.4 H AST 162 H ALT 78 H Alkaline Phosphatase 150 H C-Reactive Protein Total Protein 6.2 L Albumin 3.1 L Procalcitonin Urine Protein Crossmatch 08/12/23 08/12/23 08/12/23 05:45 05:45 05:45 WBC 4.00 L RBC 4.14 L Hgb 11.1 L Hct 34.9 L MCH 26.8 L MCHC 31.8 L RDW 17.1 H Plt Count MPV 12.8 H Lymphocytes # 0.22 L Eosinophils # 0 L PT INR ABG pH ABG pCO2 ABG pO2 ABG O2 Saturation ABG Lactic Acid Sodium 126 L Chloride Carbon Dioxide BUN Creatinine 0.64 L Glucose 131 H POC Glucose (mg/dL) Plasma Lactic Acid Phong Calcium 7.7 L Magnesium AST 139 H ALT 67 H Alkaline Phosphatase C-Reactive Protein 6.0 H Total Protein 5.0 L Albumin 2.3 L Procalcitonin 0.19 H Urine Protein Crossmatch 01/04/23 01/05/23 01/05/23 13:30 05:20 07:18 WBC RBC 4.15 L Hgb 11.8 L Hct 35.3 L MCH MCHC RDW 16.6 H Plt Count 123 L MPV Lymphocytes # 0.4 L Eosinophils # PT INR ABG pH ABG pCO2 ABG pO2 ABG O2 Saturation ABG Lactic Acid Sodium Chloride Carbon Dioxide BUN Creatinine Glucose POC Glucose (mg/dL) 111 H Plasma Lactic Acid Phong Calcium Magnesium AST ALT Alkaline Phosphatase C-Reactive Protein Total Protein Albumin Procalcitonin Urine Protein Trace H Crossmatch 01/05/23 01/05/23 01/05/23 08:04 08:54 08:54 WBC RBC 3.63 L Hgb 10.5 L Hct 31.8 L MCH MCHC RDW 16.4 H Plt Count 111 L MPV Lymphocytes # 0.9 L Eosinophils # PT 13.6 H INR 1.3 H ABG pH ABG pCO2 ABG pO2 ABG O2 Saturation ABG Lactic Acid Sodium Chloride Carbon Dioxide BUN Creatinine Glucose POC Glucose (mg/dL) Plasma Lactic Acid Phong Calcium Magnesium AST ALT Alkaline Phosphatase C-Reactive Protein Total Protein Albumin Procalcitonin Urine Protein Crossmatch See Detail 01/05/23 01/05/23 01/05/23 08:54 08:54 09:11 WBC RBC Hgb Hct MCH MCHC RDW Plt Count MPV Lymphocytes # Eosinophils # PT INR ABG pH 7.26 L ABG pCO2 46 H ABG pO2 263 H ABG O2 Saturation 99.0 H ABG Lactic Acid 2.0 H Sodium 127 L Chloride Carbon Dioxide BUN Creatinine 0.59 L Glucose 136 H POC Glucose (mg/dL) Plasma Lactic Acid Phong Calcium 5.8 L* Magnesium AST 110 H ALT 52 H Alkaline Phosphatase C-Reactive Protein Total Protein 3.6 L Albumin 1.6 L Procalcitonin Urine Protein Crossmatch - Diagnostic Findings Chest x-ray: image reviewed (As noted in HPI, suspect left lower lobe atelectasis, post intubation chest x-ray showed bibasilar infiltrates most likely secondary to blood aspiration.) Assessment and Plan Assessment: Impression: Massive upper airways/pharyngeal bleeding, possible pharyngeal mass with massive bleeding. 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 Left lower lobe atelectasis, possible pneumonia Hypertension secondary to bleeding requiring multiple transfusions, fluid boluses, norepinephrine, and tranexamic acid for bleeding. Status post intubation, bronchoscopy, EGD, and packing pharynx with gauze to stop massive bleeding Recommendation: Continue ventilatory support Transfuse and keep close watch on his hemoglobin/hematocrit ENT consultation, discussed the case with Dr. Bai over the phone and he is coming in to see the patient Surgical consult done, EGD was performed and no evidence of bleeding from the stomach or duodenum or the esophagus. Use pressors as needed to maintain adequate blood pressure. Continue patient on propofol, We'll discuss possibly transferring the patient after evaluated by Dr. Bai and decide whether this could be handled in our institution or needs a tertiary care center referral. Patient is extremely ill, prognosis is extremely poor, Critical care time is over 55 minutes not including the time spent on procedures Will notify primary care physician to be aware that the patient may require transfer to a tertiary care center We'll continue to follow for now Time with Patient: Greater than 30
--- NOTE | 2023-01-05 11:44 | OP ---
OPERATIVE REPORT DATE OF SERVICE : PROCEDURE PERFORMED: Bronchoscopy and bronchoalveolar lavage of the left lower lobe. PREOPERATIVE DIAGNOSIS: Possible hemoptysis. POSTOPERATIVE DIAGNOSIS: Suspect GI bleeding or pharyngeal bleeding. ANESTHESIA USED: The patient has already received medications for the intubation, hence no more anesthetic was given. DESCRIPTION OF PROCEDURE: The patient was already on mechanical ventilation, an adapter was used, the bronchoscope was advanced through the adapter down to the distal end of the endotracheal tube. There was no active bleeding noted, the bronchial mucosa was noted to be bathed with a small amount of blood throughout all the airways. Again, no active bleeding, however, considering the patient came in with left lower lobe atelectasis and possible pneumonia, lavage of the left lower lobe was done, there were minimal secretions, were not purulent, they were bloody/blood tinged. Fluid was sent for different diagnostic studies. Procedure was well tolerated. Again, there was no evidence of active bleeding in the airways. Then, a nasogastric tube was placed, and there was significant amount of blood noted coming out of the stomach. Hence, GI was consulted and was not available. General Surgery was consulted for an emergent EGD. MMODL / IJN: [id number] /
[2023-01-05 11:47] LABS: Glucose,Whole Blood 107 mg/dL (70-110)
--- NOTE | 2023-01-05 12:04 | OP ---
OPERATIVE REPORT DATE OF SERVICE : PROCEDURE PERFORMED: Placement of a right IJ triple-lumen catheter. PREOPERATIVE DIAGNOSIS: Hypotension secondary to massive bleeding/pharyngeal bleeding. POSTOPERATIVE DIAGNOSIS: Hypotension secondary to massive bleeding/pharyngeal bleeding. ANESTHESIA USED: 2 mL of 1% lidocaine. DESCRIPTION OF PROCEDURE: The patient was placed in a supine position, the area of the right neck was prepared in a sterile fashion. Drapes were applied. The area behind the posterior belly of the sternocleidomastoid was locally anesthetized, then using the posterior approach, the right internal jugular vein was easily cannulated, and a guidewire was placed. Area around guidewire was dilated. Then, a triple-lumen catheter was inserted over the guidewire, and the guidewire was removed. Good blood flow noted in the 3 different ports. Line was secured using 3-0 silk sutures, no evidence of complications. Chest x- ray showed adequate placement of the central line through the IJ. MMODL / IJN: [id number] /
--- NOTE | 2023-01-05 12:14 | OP ---
OPERATIVE REPORT DATE OF SERVICE : PROCEDURE PERFORMED: Placement of a right radial arterial line. PREOPERATIVE DIAGNOSIS: Massive bleeding from the pharyngeal area, possible pharyngeal mass. POSTOPERATIVE DIAGNOSIS: Massive bleeding from the pharyngeal area, possible pharyngeal mass. ANESTHESIA USED: None deployed. DESCRIPTION OF PROCEDURE: The patient was placed in the supine position, the right wrist was prepared in a sterile fashion. Drapes were applied. The right radial artery was palpated, cannulated easily. A guidewire was placed and a Cook catheter was inserted over the guidewire, and the guidewire was removed. Good blood flow, good waveform, no complications. Line was secured using 3-0 silk sutures. MMODL / IJN: [id number] /
--- NOTE | 2023-01-05 12:19 | OP ---
OPERATIVE REPORT DATE OF SERVICE : PROCEDURE PERFORMED: Endotracheal intubation. ANESTHESIA USED: The patient received 5 mg of Versed, 100 mg of succinylcholine, and 100 mg of propofol. PREOPERATIVE DIAGNOSIS: Massive bleeding, differential diagnosis included hemoptysis, upper GI bleeding/gastric ulcer, and possible pharyngeal bleeding. POSTOPERATIVE DIAGNOSIS: Massive bleeding, differential diagnosis included hemoptysis, upper GI bleeding/gastric ulcer, and possible pharyngeal bleeding. PROCEDURE IN DETAIL: The patient was placed in a supine position, he was given Versed, propofol, and succinylcholine. Then, a GlideScope was used with a blade #4. The tongue was depressed, and I could visualize a significant amount of blood noted in the area around the vocal cords. I could barely visualize the vocal cords, and then the last, I was able to insert a size 8.0 endotracheal tube through the vocal cords, and the stylet was removed after the tube was advanced through the vocal cords. There was a color change, cuff was inflated, and there was no significant amount of blood noted in the endotracheal tube. Proceeded to bronchoscopy. Please refer to the bronchoscopy report. MMODL / IJN: [id number] /
[2023-01-05] MEDS ORDERED: SODIUM BICARB 8.4% 50 ML SYR (1 MEQ/ML) IV STA (12:31)
[2023-01-05 12:38] LABS: ABG Base Excess -5.6 mmol/L; ABG HCO3 20 mmol/L (21-25); ABG Oxygen Saturation 98.4 % (94-97); ABG PCO2 34 mmHg (35-45); ABG PH 7.37 (7.35-7.45); ABG PO2 124 mmHg (83-108); ABG TCO2 21 mmol/L (19-24)
[2023-01-05 12:42] LABS: Anisocytosis Slight; Basophils % (A) 0 %; Eosinophils % (A) 0 %; HGB 13.2 gm/dL (13.0-17.5); Lymphocytes # (A) 0.4 k/uL (1.0-4.8); Lymphocytes % (A) 5 %; MCH 29.8 pg (25.0-35.0); MCHC 34.8 g/dL (31.0-37.0); MCV 85.7 fL (80.0-100.0); Mean Platelet Volume 10.3; Monocytes # (A) 0.2 k/uL (0-1.0); Monocytes % (A) 2 %; Neutrophils # (A) 8.7 k/uL (1.3-7.7); Neutrophils % (A) 92 %; Platelet Count 114 k/uL (150-450); RBC 4.44 m/uL (4.30-5.90); RDW 16.2 % (11.5-15.5); WBC 9.4 k/uL (3.8-10.6)
[2023-01-05] MEDS ORDERED: VASOPRESSIN 60 UNIT in SODIUM CHLORIDE 0.9% 150 ML IV SCH (13:00)
[2023-01-05] MEDS ORDERED: MORPHINE SULFATE 2 MG/ML SYRINGE IVP PRN (13:24)
--- NOTE | 2023-01-05 13:29 | PCN ---
PROCEDURE NOTE PROCEDURE PERFORMED: Flexible nasopharyngoscopy. PREOPERATIVE DIAGNOSIS: Oropharyngeal bleeding. POSTOPERATIVE DIAGNOSIS: Right oropharyngeal bleeding. ANESTHESIA: None. COMPLICATIONS: None. BLOOD LOSS: None from the procedure. FINDINGS: Irregular necrotic-appearing tissue with active bleeding, right oropharynx. DESCRIPTION OF PROCEDURE: The patient was in his hospital bed, intubated and with orogastric tube in place. Flexible nasopharyngoscopy was performed to the right nasal cavity with systematic evaluation of the nasopharynx and oropharynx, hypopharynx and larynx with limited visualization due to ongoing bleeding. The findings were noted as above as well as in his consult note. The laryngoscope was withdrawn with no complications. MMODL / IJN: [id number] /
--- NOTE | 2023-01-05 13:29 | CONS ---
CONSULTATION REASON FOR CONSULTATION: Throat bleeding. HISTORY OF PRESENT ILLNESS: This is a 72-year-old white male, who was admitted 2 days ago for generalized weakness and difficulty with swallowing/sore throat. He started having symptoms of sore throat and difficulty swallowing back in May and was diagnosed with thrush. He has had persistent symptoms since despite utilizing nystatin and Diflucan. He has had worsening symptoms, however, and was quite weak and had fatigue. He was admitted for these symptoms 2 days ago. We had been consulted, although recommended Infectious Disease consult, which was done yesterday. He did have some fever and chest x-ray showed some opacity in the left base. He was on Zosyn and Diflucan. Earlier this morning, he was noted to be hypotensive and had hematemesis and possible hemoptysis. He underwent intubation and bronchoscopy, which was negative. Orogastric tube was placed and there was a significant amount of bright red blood, which then prompted EGD, which was also negative. Dr. Floyd and Dr. Garcia, both contacted me as they felt his source of bleeding may be more of the upper airway, possible oropharynx. Dr. Garcia did stabilize the bleeding with Kerlix placed after evaluating the patient with the glide scope. PAST MEDICAL HISTORY: Positive for right eye cancer treated with surgery and history of COVID. PAST SURGICAL HISTORY: Tonsillectomy. Note that history was obtained from his brothers and his chart, as he is intubated. SOCIAL HISTORY: History of smoking, but not now. Past history of alcohol use. ALLERGIES: No known drug allergies. MEDICATIONS AT HOME: None. FAMILY HISTORY: Positive for intracranial aneurysm and hypertension. REVIEW OF SYSTEMS: Unable due to being intubated. PHYSICAL EXAMINATION: GENERAL: Well-developed white male, intubated and sedated. HEENT: Head, normocephalic and atraumatic. Ears show canals are clear. Tympanic membranes unremarkable and mobile. Nose shows minimal oozing from the nares, but only very minimal with mucous drainage also. Oropharynx, oral endotracheal tube and orogastric tube in place as well as Kerlix. Kerlix was removed to evaluate. The patient was evaluated with flexible laryngoscopy, glide scope, and direct visualization. Has appearance of some [id number] arterial bleeding from the right tonsillar fossa with irregular necrotic-appearing tissue in the right tonsillar fossa. Exam is limited by the tubes in place and active bleeding. The Kerlix pack was replaced, which tamponaded the bleeding. NECK: Has a line in the right neck. No masses were palpated. 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 PLAN: I discussed the patient's status with Dr. Shaw, his primary physician in the ICU and recommended transfer to a tertiary care institution, which would have capability of Interventional Radiology for a possible embolization as well as head and neck cancer specialists such as [facility], where they do have these capabilities. He is stable presently and it is felt that further manipulation of the tissue in this area may cause the bleeding to become more unstable without capability of Interventional Radiology at this institution. I did discuss the patient's situation with both of his brothers who were present and explained the gravity of the situation with his need to have transfer as well as ongoing diagnostic workup including for the possibility of a malignancy and they do understand and are agreeable to this. If there are any questions or concerns regarding this patient's care otherwise, please feel free to contact me. MMODL / IJN: [id number] /
--- NOTE | 2023-01-05 13:35 | P.DS ---
Providers Date of admission: 01/03/23 15:12 Expected date of discharge: 01/05/23 Attending physician: Chda Abad Consults: 01/03/23 15:12 Consult Physician Urgent Consulting Provider: Valentín Charles Consult Reason/Comments: thrush, failed outpatient treatment Do you want consulting provider notified?: Yes 01/03/23 18:03 Consult Physician Routine Consulting Provider: Sharyn Mcgraw Consult Reason/Comments: thrush, failed outpatient Do you want consulting provider notified?: Yes 01/05/23 05:51 Consult Physician Routine Consulting Provider: Isauro Shaw Consult Reason/Comments: hemoptysis Do you want consulting provider notified?: Yes, Notify in am 01/05/23 07:46 Consult Physician Routine Consulting Provider: Emre Garcia Consult Reason/Comments: low BP Do you want consulting provider notified?: Already Contacted 01/05/23 08:27 Consult Physician Stat Consulting Provider: Zach Floyd Consult Reason/Comments: GIB Do you want consulting provider notified?: Yes Primary care physician: [facility] Course: Chief Complaint: Difficulty swallowing This is a pleasant 72-year-old patient who follows with Dr. Chad Abad. Patient now presents that since May of this series of decreased appetite. Became much worse in November of this year. Denies any pain. Has a cough. Finding it difficult to swallow. 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 And losing some weight. Tired. Spiked a fever to 102.6. Able to get around the house. Patient stopped smoking about 8 months ago. Patient was drinking about 12 pack alcohol per week. Patient was being treated for thrush outpatient. 01/05/2023: Very early this morning patient started what appeared to be coughing of blood.A team was called. Pulmonary was consulted. Patient started putting out significant amount of blood. Moved to the ICU. By this afternoon patient required 4 L of blood and 4 L of fluid. Intubated. EGD by Dr. Floyd with unremarkable, except for blood in the stomach.. Followed by a laryngoscopy by Dr. Bill/ENT. He found a mass felt to be responsible from the right tonsillar bed. Gauze packing was done. She felt patient may need embolization. Patient still present at the bedside. Spoke to them. Patient's drips include levo fed, IV vasopressin, propofol, tranexamic acid. FiO2 45 and a PEEP of 5. I spoke to the [facility] surgical on-call Dr. Acosta and gave him an update. He is accepted the patient. Patient remains critically ill. Is being transferred out for higher level of care. Hemoglobin did drop dropped down 10.4 this morning. Active Medications Acetaminophen (Acetaminophen Tab 325 Mg Tab) 650 mg PO Q6HR PRN PRN Reason: Mild Pain or Fever > 100.5 Last Admin: 01/05/23 00:39 Dose: 650 mg Acetaminophen (Acetaminophen Suppository 650 Mg Supp) 650 mg RECTAL Q6HR PRN PRN Reason: Fever and/ or Pain Last Admin: 01/04/23 03:29 Dose: 650 mg Albuterol/Ipratropium (Ipratropium-Albuterol 3 Ml Neb) 3 ml INHALATION RT-TID WILLIE Last Admin: 01/05/23 12:29 Dose: 3 ml Fluconazole (Fluconazole 100 Mg Tab) 100 mg PO DAILY WILLIE; Protocol Last Admin: 01/05/23 10:50 Dose: Not Given Piperacillin Sod/Tazobactam (Sod 3.375 gm/ Sodium Chloride) 100 mls @ 200 mls/hr IVPB Q6H WILLIE; Protocol Last Admin: 01/05/23 09:09 Dose: 200 mls/hr Norepinephrine Bitartrate 8 mg (/ Sodium Chloride) 258 mls @ 3.739 mls/hr IV .Q24H WILLIE; Protocol Last Titration: 01/05/23 13:06 Dose: 0.25 mcg/kg/min, 31.158 mls/hr Tranexamic Acid 1,000 mg/ (Sodium Chloride) 260 mls @ 32.5 mls/hr IV ONCE ONE Stop: 01/05/23 18:59 Last Admin: 01/05/23 10:50 Dose: 32.5 mls/hr Sodium Chloride (Saline 0.9%) 1,000 mls @ 130 mls/hr IV .Q7H42M WILLIE Last Admin: 01/05/23 10:45 Dose: 130 mls/hr Propofol 1,000 mg/ IV Solution 100 mls @ 5.797 mls/hr IV .[id number] WILLIE; Protocol Last Admin: 01/05/23 08:30 Dose: 15 mcg/kg/min, 5.797 mls/hr Vasopressin 60 unit/ Sodium (Chloride) 153 mls @ 4.59 mls/hr IV .Q24H [facility]; Protocol Last Admin: 01/05/23 12:48 Dose: 0.03 units/min, 4.59 mls/hr Morphine Sulfate (Morphine Sulfate 2 Mg/Ml Syringe) 1 mg IVP Q4H PRN PRN Reason: Breakthrough Pain Naloxone HCl (Naloxone 0.4 Mg/Ml 1 Ml Vial) 0.2 mg IV Q2M PRN PRN Reason: Opioid Reversal Pantoprazole Sodium (Pantoprazole 40 Mg/10 Ml Vial) 40 mg IV DAILY [facility] Past medical history to include: Right eye cancer with blindness. COVID. Social history: Smoked a pack a day for 45 years stopped about 8 months ago. [employer] worker. Drinks about 12 pack of alcohol per week. Physical examination: VITAL SIGNS: 98.6, 122, 32, 139 with 78, 97% on the ventilator GENERAL: BMI 22.2, diet laying in bed. EYES: [Blind in the right eye l. HEENT: Intubated. NECK: JVD not raised; masses not palpable. HEART: First and second heart sounds are normal; no edema. LUNGS: Respiratory rate normal; decreased breath sound. ABDOMEN: Soft, nontender, liver spleen not palpable, no masses palpable. PSYCH: Sedated MUSCULOSKELETAL:No Clubbing/cyanosis;muscles-grossly intact. Loss of subcutaneous fat. INVESTIGATIONS, reviewed in the clinical context: 01/05/2023: White count 49.4 hemoglobin 13.2 platelets 114 01/04/2023: White count 4 hemoglobin 11.1 platelets 160 sodium 126 potassium 3.8 creatinine 0.64 AST 139 ALT 67 procalcitonin 0.19 January 03: A 5.5 hemoglobin 13.3 platelets 129 sodium 127 potassium 4.9 BUN 27 creatinine 0.91 AST 162 ALT 78 albumin 3.1 EKG tracing personally reviewed by me-normal sinus rhythm. Some ST segment changes. Chest x-ray film personally reviewed by me-hyperinflation. Possible atelectasis. Assessment and plan: -Acute large severe bleed from a possible mass in the right tonsillar fossa. Uncontrolled. Underwent a in direct laryngoscopy by Dr. Bai. Local pressure with gauze. -Acute hypoxic respiratory failure, ventilator assist -Acute severe blood loss anemia from bleeding mass in the right fossa. Patient is required 4 units of blood. -Hypotensive shock On IV levo fed IV vasopressin. -Possible early pneumonia. Patient spiked a fever 102.6. IV Zosyn. We've followed by ID. -Dysphagia due to mass in the right tonsillar fossa -Outpatient patient was being treated for thrush. Currently no obvious findings of the pharynx. Follow with ID. -COPD in a previous smoker DuoNeb 3 times a day -GERD PPI -Full code Disposition: Patient has been accepted at [facility], for higher level of care. May need embolization. With head and neck standby. Plan - Discharge Summary Discharge Rx Participant: No New Discharge Prescriptions: No Action No Known Home Medications Discharge Medication List No Known Home Medications 01/03/23 [History] Follow up Appointment(s)/Referral(s): None,Stated [REFERRING] - 1-2 days
[2023-01-05] MEDS ORDERED: SODIUM CHLORIDE 0.9% 1,000 ML IV ONE (13:57)
[2023-01-05 14:43] VITALS: RESP 24
[2023-01-05 14:46] VITALS: TEMP 100
--- NOTE | 2023-01-05 15:51 | P.PN ---
Subjective Progress Note Date: 01/05/23 Principal diagnosis: Possible aspiration pneumonia Patient is a 72-year-old male with a past medical history significant for right eye cancer did have a history of COVID-19 infection presenting to the hospital for evaluation of weakness inability to eat and difficulty swallowing , patient did spike a fever concern for possible aspiration pneumonia started on Zosyn patient did have a worsening of his clinical condition requiring transfer to the ICU has been intubated, patient was noticed to have a tonsillar mass that is bleeding and the patient has been evaluated by ENT as well as pulmonary status post bronchoscopy On today's evaluation that is 01/05/2023, the patient did have low-grade fever 100F this afternoon patient is currently on pressor support to maintain his blood pressure, patient is on 45% FiO2 no diarrhea or any visual changes reported by the nursing staff Patient did have a hemoglobin of 13.2 with a white count 9.4 creatinine 0.59, covid testing was negative Objective - Vital Signs Vital signs: Vital Signs Temp 100.0 F H 01/05/23 14:30 Pulse 108 H 01/05/23 15:30 Resp 24 01/05/23 15:30 BP 106/74 01/05/23 15:30 Pulse Ox 100 01/05/23 15:30 FiO2 45 01/05/23 15:26 Intake & Output 01/04/23 01/05/23 01/05/23 18:59 06:59 18:59 Intake Total 7846.384 Output Total 300 2445 Balance -300 5401.384 Weight 64.41 kg Intake: IV 6252.5 Calcium Gluconate in NaCl 200 1 gm In Saline 1 100ml. bag @ 100 mls/hr IVPB ONCE ONE Rx#:[id number] Sodium Chloride 0.9% 1, 390 000 ml @ 130 mls/hr IV . Q7H42M WILLIE Rx#:[id number] Tranexamic 1,000 mg/100Ml 100 -NaCl 1,000 mg In Saline 1 100ml.bag @ 400 mls/hr IV ONCE STA Rx#:[id number] Tranexamic Acid 1,000 mg 162.5 In Sodium Chloride 0.9% 250 ml @ 32.5 mls/hr IV ONCE ONE Rx#:[id number] bolus 5000 Intake, IV Titration 73.884 Amount Norepinephrine 8 mg In 68.964 Sodium Chloride 0.9% 250 ml @ 0.03 MCG/KG/MIN 3. 739 mls/hr IV .Q24H WILLIE Rx#:[id number] Vasopressin 60 unit In 4.437 Sodium Chloride 0.9% 150 ml @ 0.03 UNITS/MIN 4.59 mls/hr IV .Q24H WILLIE Rx#: [id number] propofoL 1,000 mg In 0.483 Empty Bag 1 bag @ 15 MCG/ KG/MIN 5.797 mls/hr IV . [id number] WILLIE Rx#:[id number] Blood Product 1520 Rc As-1 Unit 310 [id number] Rc As-1 Unit 310 [id number] Rc As-1 Unit 310 [id number] Rc As-1 Unit 310 [id number] Rc Pheresis 2 As3 Unit 280 [id number] Output: Urine 300 2445 Other: Voiding Method Toilet Indwelling Catheter Urinal # Voids 1 # Bowel Movements 1 ABP, PAP, CO, CI - Last Documented Arterial Blood Pressure 126/60 Pulmonary Artery Pressure 110/52 - Exam GENERAL DESCRIPTION: An elderly male intubated on the vent RESPIRATORY SYSTEM: Unlabored breathing , decreased breath sounds at bases HEART: S1 S2 regular rate and rhythm , ABDOMEN: Soft , no tenderness EXTREMITIES: No edema feet - Labs CBC & Chem 7: 01/05/23 12:21 01/05/23 08:54 Labs: Abnormal Lab Results - Last 24 Hours (Table) 01/05/23 01/05/23 01/05/23 Range/Units 05:20 07:18 08:04 RBC 4.15 L (4.30-5.90) m/uL Hgb 11.8 L (13.0-17.5) gm/dL Hct 35.3 L (39.0-53.0) % RDW 16.6 H (11.5-15.5) % Plt Count 123 L (150-450) k/uL Neutrophils # (1.3-7.7) k/uL Lymphocytes # 0.4 L (1.0-4.8) k/uL PT (9.0-12.0) sec INR (<1.2) ABG pH (7.35-7.45) ABG pCO2 (35-45) mmHg ABG pO2 (83-108) mmHg ABG HCO3 (21-25) mmol/L ABG O2 Saturation (94-97) % ABG Lactic Acid (0.5-1.6) mmol/L Sodium (137-145) mmol/L Creatinine (0.66-1.25) mg/dL Glucose (74-99) mg/dL POC Glucose (mg/dL) 111 H (70-110) mg/dL Calcium (8.4-10.2) mg/dL AST (17-59) U/L ALT (4-49) U/L Total Protein (6.3-8.2) g/dL Albumin (3.5-5.0) g/dL Crossmatch See Detail 01/05/23 01/05/23 01/05/23 Range/Units 08:54 08:54 08:54 RBC 3.63 L (4.30-5.90) m/uL Hgb 10.5 L (13.0-17.5) gm/dL Hct 31.8 L (39.0-53.0) % RDW 16.4 H (11.5-15.5) % Plt Count 111 L (150-450) k/uL Neutrophils # (1.3-7.7) k/uL Lymphocytes # 0.9 L (1.0-4.8) k/uL PT 13.6 H (9.0-12.0) sec INR 1.3 H (<1.2) ABG pH (7.35-7.45) ABG pCO2 (35-45) mmHg ABG pO2 (83-108) mmHg ABG HCO3 (21-25) mmol/L ABG O2 Saturation (94-97) % ABG Lactic Acid (0.5-1.6) mmol/L Sodium 127 L (137-145) mmol/L Creatinine 0.59 L (0.66-1.25) mg/dL Glucose 136 H (74-99) mg/dL POC Glucose (mg/dL) (70-110) mg/dL Calcium 5.8 L* (8.4-10.2) mg/dL AST 110 H (17-59) U/L ALT 52 H (4-49) U/L Total Protein 3.6 L (6.3-8.2) g/dL Albumin 1.6 L (3.5-5.0) g/dL Crossmatch 01/05/23 01/05/23 01/05/23 Range/Units 08:54 09:11 12:21 RBC (4.30-5.90) m/uL Hgb (13.0-17.5) gm/dL Hct 38.0 L (39.0-53.0) % RDW 16.2 H (11.5-15.5) % Plt Count 114 L (150-450) k/uL Neutrophils # 8.7 H (1.3-7.7) k/uL Lymphocytes # 0.4 L (1.0-4.8) k/uL PT (9.0-12.0) sec INR (<1.2) ABG pH 7.26 L (7.35-7.45) ABG pCO2 46 H (35-45) mmHg ABG pO2 263 H (83-108) mmHg ABG HCO3 (21-25) mmol/L ABG O2 Saturation 99.0 H (94-97) % ABG Lactic Acid 2.0 H (0.5-1.6) mmol/L Sodium (137-145) mmol/L Creatinine (0.66-1.25) mg/dL Glucose (74-99) mg/dL POC Glucose (mg/dL) (70-110) mg/dL Calcium (8.4-10.2) mg/dL AST (17-59) U/L ALT (4-49) U/L Total Protein (6.3-8.2) g/dL Albumin (3.5-5.0) g/dL Crossmatch 01/05/23 Range/Units 12:35 RBC (4.30-5.90) m/uL Hgb (13.0-17.5) gm/dL Hct (39.0-53.0) % RDW (11.5-15.5) % Plt Count (150-450) k/uL Neutrophils # (1.3-7.7) k/uL Lymphocytes # (1.0-4.8) k/uL PT (9.0-12.0) sec INR (<1.2) ABG pH (7.35-7.45) ABG pCO2 34 L (35-45) mmHg ABG pO2 124 H (83-108) mmHg ABG HCO3 20 L (21-25) mmol/L ABG O2 Saturation 98.4 H (94-97) % ABG Lactic Acid (0.5-1.6) mmol/L Sodium (137-145) mmol/L Creatinine (0.66-1.25) mg/dL Glucose (74-99) mg/dL POC Glucose (mg/dL) (70-110) mg/dL Calcium (8.4-10.2) mg/dL AST (17-59) U/L ALT (4-49) U/L Total Protein (6.3-8.2) g/dL Albumin (3.5-5.0) g/dL Crossmatch Microbiology - Last 24 Hours (Table) 01/04/23 05:30 Blood Culture - Preliminary Blood 01/04/23 05:45 Blood Culture - Preliminary Blood 01/04/23 16:30 Gram Stain - Preliminary Sputum Assessment and Plan (1) Sepsis Current Visit: Yes Status: Acute Code(s): A41.9 - SEPSIS, UNSPECIFIED ORGANISM SNOMED Code(s): 05466828 (2) Aspiration pneumonia Current Visit: Yes Status: Acute Code(s): J69.0 - PNEUMONITIS DUE TO INHALATION OF FOOD AND VOMIT SNOMED Code(s): 607247568 Plan: 1patient with a fever and this patient was in the hospital with difficulty swallowing and has been diagnosed with thrush in the outpatient setting feeling nystatin swish and swallow now with cough and some purulent sputum did have a left basilar opacity elevated procalcitonin possible pneumonia likely aspiration etiology, now with worsening of his respiratory status requiring intubation and did have a bleed possibly related to his tonsillar mass 2- sputum for Gram stain culture has been obtained currently pending the course of our pending 3-patient will continue patient on Zosyn 3.375 g every 8 hours along with Diflucan awaiting transfer to tertiary care Family the bedside and multiple questions concerned were answered Dictation was produced using [employer] dictation software. please excuse any grammatical, word or spelling errors. Time with Patient: Greater than 30
[2023-01-05 18:42] VITALS: BP 128/68; PULSE 115
[2023-01-06] MEDS ORDERED: PANTOPRAZOLE 40 MG/10 ML VIAL IV SCH (09:00)
[2023-01-06 15:06] LABS: Appearance,BF Clear
[2023-01-06 15:07] LABS: Nucleated Cells, Body Fluid 3 /uL; RBC, Body Fluid 8 /uL
--- NOTE | 2023-01-07 11:37 | CDI ---
Documentation Clarification Form Date: 01/07/2023 11:21:47 AM From: Niesha Li Phone: Admit Date: 01/03/2023 03:12:00 PM Patient Name: Marquise Calvin Visit Number: [id number] Discharge Date: 01/05/2023 06:28:00 PM ATTENTION: The Clinical Documentation Specialists (CDI) and [facility] Coding Staff appreciate your assistance in clarifying documentation. Please respond to the clarification below the line at the bottom and electronically sign. The CDI & [facility] Coding staff will review the response and follow-up if needed. Please note: Queries are made part of the Legal Health Record. If you have any questions, please contact the author of this message via ITS. Dr. Isauro Shaw Sepsis is documented per Progress Note 01/05/23 which may lack sufficient clinical evidence/support in the medical record. Additional clarification is requested. History/Risk Factors: 72yo M, bleeding& dysphagia d/t massin the right tonsillar fossa, ABLA, AHRF, hypotensiveshock, Asp PNA, OP Txthrush, GERD, COPD,former smoker Clinical Indicators: WBC: 5.5 01/03 4.00 01/04 Lactic acid: 2.2 01/03 2.0 01/05 Vitals signs: 98.3 F 85 22 104/71 94 L Treatment: ID Consult: infectious diseaserecommendedZosyn also recommended Diflucan. Antibiotics: patient has been receiving antibiotics in the form of Zosyn for LLL PNA IV Bolus:patient received 3u PRBC, he received 2 units of saline/fluid boluses patient received tranexamic acid and he will be on the protocol. Is there an additional diagnosis that is clinically appropriate for this patient? [ ] Sepsis, present on admission [ + ] Sepsis ruled out SIRS Criteria: 2 or more of the following may indicate SIRS Temperature < 96.8F (36C) or > 101.0F (38.3C) Heart Rate > 90 bpm Respiratory Rate > 20 breaths/min or PaCO2 < 32 mmHg White Blood Cell Count > 12,000 or < 4,000 cells/mm3 or > 10% bands (Template Last Reviewed: May 2022) MTDD
== END 2023-01-05 18:28 | disposition short-term general hospital (02) | DRG 146 ==
LOC: SUPCPDRO 12:03 → EC 12:03 → 5NMEDONC 15:12 → 2SICU 01-05 08:14
PROVIDERS: ADMIT Family Medicine; ATTEND Family Medicine
PROC: 6A550Z3 Pheresis of Plasma, Single (ICD-10-PCS; 2023-01-05)
PROC: 0DC68ZZ Extirpation of Matter from Stomach, Via Natural or Artificial Opening Endoscopic (ICD-10-PCS; 2023-01-05)
PROC: 0DC58ZZ Extirpation of Matter from Esophagus, Via Natural or Artificial Opening Endoscopic (ICD-10-PCS; 2023-01-05)
PROC: 0CJY8ZZ Inspection of Mouth and Throat, Via Natural or Artificial Opening Endoscopic (ICD-10-PCS; 2023-01-05)
PROC: 0D9670Z Drainage of Stomach with Drainage Device, Via Natural or Artificial Opening (ICD-10-PCS; 2023-01-05)
PROC: 0B9J8ZX Drainage of Left Lower Lung Lobe, Via Natural or Artificial Opening Endoscopic, Diagnostic (ICD-10-PCS; 2023-01-05)
PROC: 02HV33Z Insertion of Infusion Device into Superior Vena Cava, Percutaneous Approach (ICD-10-PCS; 2023-01-05)
PROC: 03HY32Z Insertion of Monitoring Device into Upper Artery, Percutaneous Approach (ICD-10-PCS; 2023-01-05)
PROC: 4A133B1 Monitoring of Arterial Pressure, Peripheral, Percutaneous Approach (ICD-10-PCS; 2023-01-05)
PROC: 4A133J1 Monitoring of Arterial Pulse, Peripheral, Percutaneous Approach (ICD-10-PCS; 2023-01-05)
PROC: 0BH18EZ Insertion of Endotracheal Airway into Trachea, Via Natural or Artificial Opening Endoscopic (ICD-10-PCS; 2023-01-05)
PROC: 3E043XZ Introduction of Vasopressor into Central Vein, Percutaneous Approach (ICD-10-PCS; 2023-01-05)
PROC: 30233N1 Transfusion of Nonautologous Red Blood Cells into Peripheral Vein, Percutaneous Approach (ICD-10-PCS; 2023-01-05)
PROC: 5A1935Z Respiratory Ventilation, Less than 24 Consecutive Hours (ICD-10-PCS; principal; 2023-01-05 09:30)
DX: C09.0 Malignant neoplasm of tonsillar fossa (principal); J69.0 Pneumonitis due to inhalation of food and vomit; J96.01 Acute respiratory failure with hypoxia; R57.8 Other shock; J44.0 Chronic obstructive pulmonary disease with (acute) lower respiratory infection; E87.20 Acidosis, unspecified; K92.0 Hematemesis; B37.0 Candidal stomatitis; E87.1 Hypo-osmolality and hyponatremia; D62 Acute posthemorrhagic anemia; R04.2 Hemoptysis; J98.11 Atelectasis; B37.81 Candidal esophagitis; E83.51 Hypocalcemia; I95.89 Other hypotension; K21.9 Gastro-esophageal reflux disease without esophagitis; H54.61 Unqualified visual loss, right eye, normal vision left eye; R04.1 Hemorrhage from throat; R53.83 Other fatigue; R13.12 Dysphagia, oropharyngeal phase; F10.90 Alcohol use, unspecified, uncomplicated; Z20.822 Contact with and (suspected) exposure to COVID-19; Z87.891 Personal history of nicotine dependence; Z85.840 Personal history of malignant neoplasm of eye; Z86.16 Personal history of COVID-19
CPT/HCPCS: 36415; 43235; 71045; 71046; 80053; 81003; 82140; 82805; 83605; 83735; 84145; 84484; 85025; 85610; 85730; 86022; 86140; 86850; 86900; 86901; 86920; 87040; 87070; 87102; 87116; 87205; 87206; 87252; 87496; 87498; 87502; 87529; 87634; 87635; 87798; 88108; 88305; 89050; 93005; 94002; 94640; 96360; 96361; 99285